=== PATIENT | male | born 1955 | race Caucasian/White ===

== ENCOUNTER 2024-04-14 08:48 | Emergency (ER) | payer OTHER, SELFPAY ==
[2024-04-14] VITALS (12 sets, daily range): BP systolic 111–142; BP diastolic 72–108; PULSE 71; O2SAT 94; BMI 36.5
--- NOTE | 2024-04-14 08:51 | ED.GENMED ---
Addendum entered and electronically signed by Albino Dunne PA-C 04/17/24 07:41:
Patient's urine culture shows pansensitive Pseudomonas. Patient was discharged on Keflex. He was ultimately disposition to [facility]. Culture report was faxed to their facility.
Original Note:
History of Present Illness
General
Chief Complaint: Fall
Time Seen by Provider: 04/14/24 08:51
History of Present Illness
History of Present Illness:
TIME OF INITIAL ENCOUNTER: 8:55 AM
HPI: Patient came in from home by ambulance. He states that his called EMS because he fell. The patient denies any symptoms, however it is noted that he is a very limited and unreliable historian. I reviewed the EMS run sheet that showed he
had a glucose of 141, room air sats of 94% and minimally hypertensive.
EXAM:
GENERAL: The patient is chronically ill-appearing, elevated BMI
HEENT: Slightly dry oral mucosa, transmitted upper airway sounds
CARDIOVASCULAR: No murmurs, normal heart rate, regular rhythm, No chest wall tenderness
PULMONARY: Mild respiratory distress with some conversational dyspnea, breath sounds are clear and equal other than the transmitted upper airway sounds
ABDOMEN: Soft with no peritoneal signs, no tenderness
NEUROLOGIC: Fair strength all extremities, no coordination deficits
PSYCHIATRIC: The patient was able to tell me that it is March but could not name the location that he is in, his insight and judgment are somewhat limited, limited recent memory
EXTREMITIES: Nontender, no edema, moves all extremities equally
SKIN: Some scattered areas of ecchymosis noted to the extremities
NUMBER AND COMPLEXITY OF PROBLEMS ADDRESSED AT THE ENCOUNTER
� Chronic conditions affecting care: Has had CVA, dementia, high blood pressure, depression, has had UTI, hypercholesterolemia, the patient denies history of COPD
� Acute Exacerbation and/or Progression of Chronic Illness: This is an acute problem
� Differential Diagnosis includes: Progressive functional decline, failure to thrive, rhabdomyolysis, GILMAR, dehydration, dysrhythmia
AMOUNT AND/OR COMPLEXITY OF DATA TO BE REVIEWED AND ANALYZED
� I performed an independent evaluation of and my interpretation is:
EKG: Sinus 82, frequent PACs, significant artifact noted likely due to patient's respiratory effort
CT:
X-rays: Chest x-ray to me is relatively unremarkable, radiologist suggested bilateral atelectasis and/or pneumonia however clinically I do not feel that the patient has
Laboratory Studies: White count and hemoglobin are normal (hemoglobin signal be higher than it was earlier in the year', cath urine shows 2+ leukocyte esterase and positive nitrite
Other:
� Review of other/old records: I reviewed the EMS run sheet from 04/28/2023. I also reviewed lab work from 05/07/2023, mild anemia and mild increase in bicarb noted at that time but otherwise CBC and chemistries relatively
unremarkable.
� Clinical information was obtained by an independent historian: EMS
� Prescriptions/Medications Considered but not given:
� Further testing considered but not performed: Considered imaging however the patient denies striking his head and he reports no pain in his extremities
RISK OF COMPLICATIONS AND/OR MORBIDITY OR MORTALITY OF PATIENT MANAGEMENT
� Social determinants of health affecting care: Lives at home
� Discussion with other providers: Hospitalist, Dr. Austin, for admission at 9:47 AM.
� Escalation of care including admission/observation vs risk of discharge considered: See below
ANY OTHER UPDATES:
9:20 AM: I reassessed patient. The patient continues to not have any complaints. Although he has some conversational dyspnea he denies any shortness of breath. He tells me now, that just before he fell, he got up suddenly and then 'that was it'.
9:40 AM: I reassessed the patient, the patient cannot tell me what his 's phone number is. There is no listed number in [employer] to obtain a better history.
10:40 AM: arrived at bedside. She is concerned about him going back home as he is a fall risk. I personally spoke to physical therapy at 10:40 AM for consult.
1:30 PM: The patient was seen by Sarah Murray who is arranged patient to be transferred to [place]. I did print a prescription for Keflex for UTI treatment.
Phy Exam
Physical Exam
Physical Exam:
See HPI
Course
Orders/Labs/Results
Orders:
Orders
04/14/24 08:53
Electrocardiogram (*1) Urgent
Reason for Study: Fatigue / Weakness
EKG- Treatment ONCE
04/14/24 09:02
CR Chest Portable - 1 View Urgent
Comment:
Reason For Exam: sob
Reason Study Needs to be Portable: Unable to Transport
04/14/24 09:03
Complete Blood Count/With Diff Urgent
Comprehensive Metabolic Panel Urgent
Creatine Phosphokinase Urgent
Influenza A+B Rapid Molecular Urgent
AVELINO Source: Nasal Swab
Specimen Description:
Date Specimen was Collected: 04/14/24
Time Specimen was Collected: 08:53
04/14/24 09:04
COVID-19 Antigen Urgent
Source: Nasal Swab
NT-proBNP Urgent
Comment: ADD ON
Urinalysis Reflex To Culture Urgent
Date Specimen was Collected: 04/14/24
Time Specimen was Collected: 08:53
Urine Microscopic Reflex Cult Urgent
Urine Culture Urgent
AVELINO Source: U
Specimen Description:
Date Specimen was Collected: 04/14/24
Time Specimen was Collected: 08:53
04/14/24 09:12
Add On- LAB Urgent
Tests Added?: bnp
0.9% Sodium Chloride 500 ml [Nss] 500 ml IV BOLUS
04/14/24 09:26
CefTRIAXone [Rocephin] 1,000 mg IV NOW STA
04/14/24 09:55
Case Management Consult ONCE
Case Management Consult: Discharge Planning
PT Consult [Pt Eval And Treat] Urgent
Activity Level: Ambulate
Abnormal Lab Results
04/14/24 04/14/24
09:03 09:04
MCHC 32.4 L g/dL
(33.0-37.0)
Absolute Neuts (auto) 6.9 H 10^3/uL
(1.4-6.5)
Absolute Lymphs (auto) 0.5 L 10^3/uL
(1.2-3.4)
Neutrophils % 88.1 H %
(42.2-75.2)
Lymphocytes % 5.9 L %
(20.5-51.1)
BUN 27 H mg/dl
(9-20)
Creatinine 1.4 H mg/dL
(0.7-1.3)
Glucose 134 H mg/dl
(70-99)
Total Bilirubin 2.2 H mg/dl
(0.2-1.3)
Alkaline Phosphatase 145 H U/L
(38-126)
Ur Occult Blood Reflex Trace A
(Negative)
Urine Nitrite (Reflex) Positive A
(Negative)
Leukocyte Esterase Rfl 2+ A
(Negative)
Urine WBC (Reflex) 30-40 A /HPF
(0-5)
Urine Bacteria (Reflex) Few A
(Negative)
04/14/24 09:03
04/14/24 09:03
Vital Signs
Initial and Last Documented VS:
Initial Vital Signs
Pulse Resp Pulse Ox
76 30 94
04/14/24 09:03 04/14/24 09:03 04/14/24 09:03
Last Documented Vital Signs
Temp Pulse Resp BP Pulse Ox
36.8 C 75 26 136/81 94
04/14/24 09:13 04/14/24 12:49 04/14/24 12:49 04/14/24 12:49 04/14/24 12:49
*Critical Care Note
Total Time (30-74mins, 75-104mins- exclusive of procedures): Not Applicable
ED Attending Note
-
Portions of this chart may have been created with voice recognition software.� Occasional wrong word or��sound alike� substitutions may have occurred due to the inherent limitations of voice recognition software.
Discharge Plan
Departure
Patient Disposition: Home (Routine Discharge)
Date of Disposition: 04/14/24
Time of Disposition: 09:48
Patient with high blood pressure during this ER visit?: Yes
Discharge Problem:
Urinary tract infection
Instructions: Urinary Tract Infection - Men
Prescriptions:
New
cephalexin 500 mg tablet
500 mg PO TID Qty: 21 0RF
No Action
atorvastatin 40 mg Tablet
40 mg PO DAILY
metoprolol succinate 25 mg Tablet Extended Release 24 Hr
25 mg PO DAILY
escitalopram oxalate 10 mg Tablet
10 mg PO DAILY
cholecalciferol (vitamin D3) 50 mcg (2,000 unit) Tablet
50 mcg PO DAILY
tamsulosin 0.4 mg Capsule
0.8 mg PO DAILY Qty: 60 0RF
ipratropium-albuterol 0.5 mg-3 mg(2.5 mg base)/3 mL solution for nebulization
3 ml inhalation R Q6HPRN PRN (Reason: wheezing)
Activity Restrictions/Additional Instructions:
Basic blood work is relatively unremarkable however the urinalysis does show signs of infection. We gave a dose of Rocephin here and I recommend that he continues antibiotic such as Keflex.
Interventions
Interventions:
*Risk Screen - Suicide Last Done: 04/14/24 09:13
*General Assessment Last Done: 04/14/24 09:13
*Neglect/Abuse Screening Last Done: 04/14/24 09:13
ED- Fall Risk Assessment Last Done: 04/14/24 09:13
*ED COVID-19 Vaccine History Last Done: 04/14/24 09:13
ED-Musculoskeletal Assessment Last Done: 04/14/24 09:13
ED- Neurological Assessment Last Done: 04/14/24 09:13
ED-Skin Assessment Last Done: 04/14/24 09:13
Discharge Date and Time
Print Language: STATELESS
[2024-04-14 09:19] LABS: % Basophils 0.3 % (0-2); % Immature Granulocytes 0.4 % (0-0.5); % Lymphocytes 5.9 % (20.5-51.1); % Monocytes 5.3 % (1.7-9.3); % Neutrophils 88.1 % (42.2-75.2); Absolute Lymphocytes 0.5 10^3/uL (1.2-3.4); Absolute Monocytes 0.4 10^3/uL (0.1-0.6); Absolute Neutrophils 6.9 10^3/uL (1.4-6.5); Hematocrit 48.5 % (39.0-52.0); Hemoglobin 15.7 g/dL (13.0-18.0); Mean Corp Hgb Conc. 32.4 g/dL (33.0-37.0); Mean Corpuscular Hgb 30.2 pg (27.0-31.0); Mean Corpuscular Volume 93.3 fL (80.0-94.0); Mean Platelet Volume 8.3 fL (7.4-10.4); Nucleated Red Blood Cells % 0 % (-); Platelet Count 166 10^3/uL (130-400); White Blood Cell Count 7.8 10^3/uL (4.8-10.8)
[2024-04-14 09:21] LABS: Urine Albumin Trace (Neg - Trace); Urine Bilirubin Negative (Negative); Urine Character Very Cloudy (Clear); Urine Color Yellow; Urine Glucose Negative (Negative); Urine Ketone Negative (Negative); Urine Leukocyte 2+ (Negative); Urine Nitrite Positive (Negative); Urine Occult Blood Trace (Negative); Urine Specific Gravity 1.015 (<1.030); Urine Urobilinogen Negative (Neg - 1+)
[2024-04-14] MEDS: NSS 500 IV (09:24)
[2024-04-14 09:31] LABS: Urine Bacteria Few (Negative); Urine Red Blood Cell 0-2 /HPF (0-2); Urine Squamous Cell 0-2 /LPF (Few); Urine White Cell 30-40 /HPF (0-5)
[2024-04-14 09:33] LABS: ALT (SGPT) 14 U/L (0-50); AST (SGOT) 21 U/L (17-59); Albumin 3.8 g/dl (3.5-5.0); Alkaline Phosphatase 145 U/L (38-126); Blood Urea Nitrogen 27 mg/dl (9-20); Carbon Dioxide 25 mmol/L (22-30); Chloride 103 mmol/L (98-107); Creatine Phosphokinase 86 U/L (55-170); Estimated Creatinine Clearance 72 ml/min; Glucose 134 mg/dl (70-99); Potassium 4.3 mmol/L (3.5-5.1); Sodium 137 mmol/L (135-145); Total Bilirubin 2.2 mg/dl (0.2-1.3); Total Protein 6.7 g/dl (6.3-8.2); eGFR 54.75
[2024-04-14 09:38] LABS: COVID-19 Antigen Negative (Negative)
[2024-04-14] MEDS: ROCEPHIN 1000 MG IV (09:41)
--- NOTE | 2024-04-14 10:17 | CM ---
CM was consulted for discharge planning. CM left message for Tianna at [facility] regarding emergency contact. Patient appears to have been a patient there at one point.
--- NOTE | 2024-04-14 10:31 | CM ---
Addendum entered by Sarah Murray RN 04/14/24 11:56:
CM updated referral with PT notes. Awaiting review by Shahnaz at [facility].
Addendum entered by Sarah Murray RN 04/14/24 11:36:
Patient would be agreeable to [facility] once patient has been accepted.
Addendum entered by Sarah Murray RN 04/14/24 11:16:
Patient's does not want [facility] as they had a poor experience there.
CM sent referrals to [facility], [facility], and [facility].
CM awaiting admission feedback.
Addendum entered by Sarah Murray RN 04/14/24 10:50:
CM sent referral via [facility] to [facility] for review.
Original Note:
in room with patient.
--- NOTE | 2024-04-14 10:59 | EDRN ---
physical therapy currently at the pts bedside
[2024-04-14 11:14] LABS: NT-proBNP 1800 pg/ml
--- NOTE | 2024-04-14 12:05 | CM ---
Addendum entered by Sarah Murray RN 04/14/24 13:17:
IBC Authorization
[facility]
5 days
NRD 04/18
Auth Number [id number]
[facility]ute [facility] Authorization
[facility]
[id number]
Original Note:
[facility] is able to accept. CM to call IBC for authorization,
--- NOTE | 2024-04-14 12:49 | EDRN ---
awaiting for the hospitalist to come to the pts bedside to admit the pt
--- NOTE | 2024-04-14 13:21 | CM ---
BRANDY
REPORT
[phone]
== END 2024-04-14 17:20 | disposition home or self-care (01) ==
LOC: EMR 08:48
PROVIDERS: EMERGENCY PHYSICIAN Emergency Medicine; FAMILY PHYSICIAN Internal Medicine
DX: N39.0 Urinary tract infection, site not specified (principal); F03.90 Unspecified dementia, unspecified severity, without behavioral disturbance, psychotic disturbance, mood disturbance, and anxiety; Z86.73 Personal history of transient ischemic attack (TIA), and cerebral infarction without residual deficits; I10 Essential (primary) hypertension; E78.00 Pure hypercholesterolemia, unspecified
CPT/HCPCS: 99285; 96374; 96361; 71045; 80053; 81003; 81015; 82550; 83880; 85025; 87077; 87086; 87186; 87502; 87811; 93005

== ENCOUNTER → 2024-04-17 11:13 | Outpatient (REF) | payer OTHER, MEDICARE, SELFPAY ==
[2024-04-17 11:43] LABS: Hematocrit 40.9 % (39.0-52.0); Hemoglobin 13.6 g/dL (13.0-18.0); Mean Corp Hgb Conc. 33.3 g/dL (33.0-37.0); Mean Corpuscular Hgb 30.2 pg (27.0-31.0); Mean Corpuscular Volume 90.9 fL (80.0-94.0); Mean Platelet Volume 9.3 fL (7.4-10.4); Platelet Count 204 10^3/uL (130-400); Red Cell Dist. Width 13.1 % (11.5-14.5); White Blood Cell Count 11.5 10^3/uL (4.8-10.8)
[2024-04-17 11:51] LABS: ALT (SGPT) 18 U/L (0-50); AST (SGOT) 30 U/L (17-59); Albumin 3.5 g/dl (3.5-5.0); Alkaline Phosphatase 139 U/L (38-126); Blood Urea Nitrogen 27 mg/dl (9-20); Calcium 9.1 mg/dl (8.4-10.2); Carbon Dioxide 28 mmol/L (22-30); Chloride 102 mmol/L (98-107); Glucose 132 mg/dl (70-99); Magnesium 2.1 mg/dl (1.6-2.3); Potassium 4.7 mmol/L (3.5-5.1); Sodium 137 mmol/L (135-145); Total Bilirubin 0.9 mg/dl (0.2-1.3); Total Protein 6.2 g/dl (6.3-8.2); eGFR > 60.00
== END ==
LOC: OLABWHC 11:13
PROVIDERS: ATTENDING PHYSICIAN Family Medicine
DX: E78.5 Hyperlipidemia, unspecified (principal); I10 Essential (primary) hypertension
CPT/HCPCS: 36415; 80053; 83735; 85027

== ENCOUNTER 2024-12-06 02:21 | Inpatient (IN) | payer OTHER, MEDICARE, SELFPAY ==
[2024-12-05 23:35] VITALS: BP 179/111
[2024-12-05 23:41] VITALS: BMI 35.7
[2024-12-05 23:42] VITALS: BP 179/111
[2024-12-05 23:58] LABS: Hematocrit 48.0 % (39.0-52.0); Hemoglobin 16.0 g/dL (13.0-18.0); Mean Corp Hgb Conc. 33.3 g/dL (33.0-37.0); Mean Corpuscular Volume 87.0 fL (80.0-94.0); Nucleated Red Blood Cells % 0 % (-); Platelet Count 185 10^3/uL (130-400); Red Cell Dist. Width 13.2 % (11.5-14.5)
[2024-12-06] VITALS (10 sets, daily range): BP systolic 103–155; BP diastolic 65–96; PULSE 64; O2SAT 97; BMI 33.3
[2024-12-06 00:14] LABS: COVID-19 Antigen Negative (Negative)
[2024-12-06 00:22] LABS: ALT (SGPT) 15 U/L (0-50); AST (SGOT) 24 U/L (17-59); Albumin 4.4 g/dl (3.5-5.0); Alkaline Phosphatase 129 U/L (38-126); Blood Urea Nitrogen 21 mg/dl (9-20); Calcium 9.3 mg/dl (8.4-10.2); Carbon Dioxide 23 mmol/L (22-30); Chloride 101 mmol/L (98-107); Estimated Creatinine Clearance 71 ml/min; Glucose 154 mg/dl (70-99); Potassium 4.7 mmol/L (3.5-5.1); Sodium 134 mmol/L (135-145); Total Protein 7.4 g/dl (6.3-8.2); eGFR 54.75
[2024-12-06 00:31] LABS: Urine Character Clear (Clear)
[2024-12-06] MEDS: OFIRMEV 100 IV (00:58)
[2024-12-06] MEDS: NSS 1000 IV ×2 (00:59→04:31)
--- NOTE | 2024-12-06 01:07 | ED.GENMED ---
History of Present Illness
General
Chief Complaint: Fever
Source: spouse
Exam Limitations: none
Time Seen by Provider: 12/05/24 23:39
Nursing documentation reviewed up to this point in time: agreed with
History of Present Illness
History of Present Illness:
states patient has had an increase in his cough over the past few days SHe has been treating with mucinex and nebulizers without imrpovement. Tonight she felt that he seemed weaker, more confused. Brought to ED via EMS for eval. Pateints
mother in law recently dx with COVID infection. On arrival to ED temp 102.4
Past History
Past History
ED Past Medical History: CVA, HTN and Other
Social History
Tobacco: Non-smoker
Alcohol: None
Personal:
Living: with family
Employment: Disabled
Review of Systems
Review of Systems
Allergies reviewed?: Yes
All Other Systems: ROS reviewed and negative except as documented in HPI and ROS
Constitutional: Reports fever
EENT: Reports no symptoms
Respiratory: Reports cough
Cardiac: Reports no symptoms
ABD/GI: Reports no symptoms
: Reports no symptoms
Musculoskeletal: Reports no symptoms
Skin: Reports no symptoms
Neurological: Reports weakness
Psychiatric: Reports no symptoms
Phy Exam
General Physical Exam
General Presentation: mild distress
General age: appears older than age
General Skin: warm and dry
General Habitus: debilitated, elderly and obese
General Mental: confused (dementia by history. feels he is more confused than normal)
General Hydration: dry mucous membranes
Cardiovascular Exam
Cardiovascular Exam: regular rate/rhythm and no edema
Pulmonary Exam
Pulmonary Exam: decreased breath sounds
Cough: coarse cough
Gastrointestinal Exam
Gastrointestinal Exam: normal bowel sounds, non tender, soft, no organomegaly and non distended
Musculoskeletal Exam
Musculoskeletal Exam: neuro vasc intact
Skin Exam
Skin Exam: normal color, warm/dry and no rash
Psychiatric Exam
Psychiatric Exam: normal mood/affect
Course
Orders/Labs/Results
Orders:
Orders
12/05/24 23:37
Electrocardiogram (*1) Urgent
Reason for Study: Other
Other Reason for Exam: Possible Sepsis
Cardiac Monitoring- Treatment ONCE
EKG- Treatment ONCE
IV Insert/Care/Rem.- Treatment PRN
Straight cath- Treatment ONCE
O2 Therapy [RESP] Urgent
Titrate/Wean O2 to maintain O2 sat greater than (%): 93
Special Instructions: TO MAINTAIN CONTINUOUS O2 SATS > OR = 93%
Pulse Ox/cont/shift [RESP] Urgent
Quantity: 1
Special Instructions: CONTINUOUS
12/05/24 23:40
COVID-19 Antigen Urgent
Source: Nasal Swab
Complete Blood Count/With Diff Urgent
Comprehensive Metabolic Panel Urgent
Lactic Acid Q4H
Comment: ON ICE, CANCEL 2ND ORDER IF FIRST LACTIC ACID LEVEL <2
Urinalysis Reflex To Culture Urgent
Date Specimen was Collected: 12/05/24
Time Specimen was Collected: 23:37
Urine Microscopic Reflex Cult Urgent
Blood Culture Q20M
AVELINO Source: Blood/Venous
Specimen Description:
Comment: Urgent from separate sites. If patient screens positive for possible sepsis
INF RAPID [Influenza A+B Rapid Molecular] Urgent
AVELINO Source: Nasal Swab
Specimen Description:
Urine Culture Urgent
AVELINO Source: U
Specimen Description:
Date Specimen was Collected: 12/05/24
Time Specimen was Collected: 23:37
12/06/24 00:00
CR Chest - 2 Views Urgent
Reason For Exam: suspected infection
12/06/24 00:05
Blood Culture Q20M
AVELINO Source: Blood/Venous
Specimen Description:
Comment: Urgent from separate sites. If patient screens positive for possible sepsis
12/06/24 00:19
Acetaminophen 1000MG/100Ml [Ofirmev] 1,000 mg in 100 ml IV ONCE
Acetaminophen IV Indication:: No [place] & No Enteral Access
12/06/24 00:30
0.9% Sodium Chloride 1000 ml [Nss] 1,000 ml IV 2,000 mls/hr
12/06/24 01:04
Piperacillin/Tazo 4.5 Gram [Zosyn] 4.5 gram in 100 ml IV NOW
12/06/24 03:45
Lactic Acid Q4H
Comment: ON ICE, CANCEL 2ND ORDER IF FIRST LACTIC ACID LEVEL <2
Abnormal Lab Results
12/05/24
23:40
Abs Immat Gran (auto) 0.1 H 10^3/uL
(0-0.05)
Absolute Neuts (auto) 8.8 H 10^3/uL
(1.4-6.5)
Absolute Lymphs (auto) 0.4 L 10^3/uL
(1.2-3.4)
Neutrophils % 91.1 H %
(42.2-75.2)
Lymphocytes % 4.5 L %
(20.5-51.1)
Sodium 134 L mmol/L
(135-145)
BUN 21 H mg/dl
(9-20)
Creatinine 1.4 H mg/dL
(0.7-1.3)
Glucose 154 H mg/dl
(70-99)
Lactic Acid 2.8 H mmol/L
(0.7-2.0)
Total Bilirubin 2.1 H mg/dl
(0.2-1.3)
Alkaline Phosphatase 129 H U/L
(38-126)
Ur Occult Blood Reflex 3+ A
(Negative)
Leukocyte Esterase Rfl 3+ A
(Negative)
Urine RBC 3-6 A /HPF
(0-2)
Urine WBC (Reflex) >100 A /HPF
(0-5)
Urine Bacteria (Reflex) Moderate A
(Negative)
Urine Albumin (Reflex) 2+ A
(Neg - Trace)
12/05/24 23:40
12/05/24 23:40
Vital Signs
Initial and Last Documented VS:
Initial Vital Signs
Resp BP
18 179/111
12/05/24 23:35 12/05/24 23:35
Last Documented Vital Signs
Temp Pulse Resp BP Pulse Ox
102.4 F H 108 35 150/96 99
12/05/24 23:42 12/06/24 00:15 12/06/24 00:15 12/06/24 00:00 12/06/24 01:14
*Pulse Oximetry
SaO2: 99
Nasal Cannula flow liters per minute: 6
Patient hypoxic: no
*Critical Care Note
Total Time (30-74mins, 75-104mins- exclusive of procedures): Not Applicable
Update Note
Update Note:
Patient to ED for eval of increasing confusion, weakness. Temp on arrival 102.4. Given dose of ofirmev. Labs reviewed WBC normal, lactic 2.8. Given 2L NSS. CXR concerning for RLL pneumonia. UA >100 WBC, confirming UTI. WIll place on Zosyn,
initiated in ED Will admit to hospitalist service. Discussed finding wtih and she is agreeable to plan.
ED Attending Note
-
Portions of this chart may have been created with voice recognition software.� Occasional wrong word or��sound alike� substitutions may have occurred due to the inherent limitations of voice recognition software.
Discharge Plan
Departure
Patient Disposition: Admit
Date of Disposition: 12/06/24
Time of Disposition: 01:14
Presentation/result/management discussed w/ accepting MD/DO: Hospitalist
Patient with high blood pressure during this ER visit?: No
Condition: Fair
Covid-19: Not Applicable
Discharge Problem:
Pneumonia, UTI (urinary tract infection)
Prescriptions:
No Action
atorvastatin 40 mg Tablet
40 mg PO DAILY
metoprolol succinate 25 mg Tablet Extended Release 24 Hr
25 mg PO DAILY
escitalopram oxalate 10 mg Tablet
10 mg PO DAILY
cholecalciferol (vitamin D3) 50 mcg (2,000 unit) Tablet
50 mcg PO DAILY
tamsulosin 0.4 mg Capsule
0.8 mg PO DAILY Qty: 60 0RF
albuterol sulfate 1.25 mg/3 mL Solution For Nebulization
1.25 mg INHALATION Q6H
Referrals:
Obinna Christine MD [Family Provider, Internal Medicine]
Interventions
Interventions:
*General Assessment Last Done: 12/05/24 23:47
*Neglect/Abuse Screening Last Done: 12/05/24 23:51
*ED- Fall Risk Assessment Last Done: 12/05/24 23:47
*ED COVID-19 Vaccine History Last Done: 12/05/24 23:46
ED- Neurological Assessment Last Done: 12/05/24 23:51
ED-Skin Assessment Last Done: 12/05/24 23:56
Discharge Date and Time
Print Language: BELARUSIAN
[2024-12-06 01:08] LABS: Urine Squamous Cell None seen /LPF (Few)
[2024-12-06 01:09] LABS: Urine White Cell >100 /HPF (0-5)
--- NOTE | 2024-12-06 01:35 | HPS.HSE ---
Family Physician
-
Family Physician: Obinna Christine
Chief Complaint
-
No fever
History of Present Illness
This is a 68-year-old male with past medical history significant for hypertension, hyperlipidemia, CVA with residual aphasia and neurogenic bladder, MONIKA, episode of paroxysmal atrial fibrillation presenting to the emergency department with
increasing cough over the last few days and now with associated weakness and confusion.
Patient started having a cough about 5 days ago. Spouse was treating it with inhalers symptomatically. He appeared to be doing well up until today when he was found to be less a lot more confused than usual. He usually has an appetite and he was
not really eating. He was confused about how to walk and what to do. Spouse felt this was not normal for him and he said to bring him to the emergency department. She did not measure any fevers. She did not see any productive cough. Patient
unable to complain about urinary symptoms. There was no nausea or vomiting.
She reports that about 2 weeks ago he was diagnosed again with a urinary tract infection. He did finish a course of oral tolerated generation cephalosporin x 3 days with improvement in his mental status afterwards. There is a sick contact with
COVID infection recently. No other sick contacts. No other hospitalizations recently.
In the emergency department patient was febrile to 102.4, he was satting 99% on room air. Blood pressure was 150/90 with a pulse rate of 108. Chest x-ray shows perihilar infiltrate and possibly bibasilar atelectasis or pneumonia. ECG sinus
tachycardia at 108 without any new changes. COVID test was negative. Influenza test was negative. CBC is unremarkable. Electrolytes BUN and creatinine were in the normal range. UA was positive for leukocyte esterase WBCs and bacteria with no
evidence of contamination.
Medical History
Past Medical History
Past Medical History: Reports Other
Additional Past Medical History:
CVA X 3 with Residual Right-Sided Weakness and Expressive/Receptive Aphasia
Essential Hypertension
Hyperlipidemia
Depression
BPH
Past Surgical History: Reports Other
Additional Past Surgical History:
Lung Surgery for Pneumonia
Social History
Tobacco: Former Smoker
Alcohol: Former
Drug: None
Personal:
Living: With Family
Family History
Family History: Not pertinent
Allergies / Home Medications
Allergies reflects when Allergies were last updated in [facility].
Home Medications with original date entered in [facility]
Allergy/Medication List:
Allergies
Allergy/AdvReac Type Severity Reaction Status Date / Time
No Known Allergies Allergy Unverified 04/18/23 07:57
Home Medications
atorvastatin 40 mg tablet 40 mg PO DAILY High Cholesterol 04/18/23
cholecalciferol (vitamin D3) 50 mcg (2,000 unit) tablet 50 mcg PO DAILY Supplement 04/18/23
escitalopram oxalate 10 mg tablet 10 mg PO DAILY Depression 04/18/23
lisinopril 20 mg tablet 20 mg PO DAILY Blood Pressure 04/18/23
metoprolol succinate 25 mg tablet,extended release 24 hr 25 mg PO DAILY Blood Pressure 04/18/23
beclomethasone dipropionate 40 mcg/actuation HFA breath activated aerosol (Qvar RediHaler) 1 inh inhalation BID copd #10.6 grams 04/26/23
ciprofloxacin HCl 500 mg tablet 500 mg PO BID Infection #10 tabs 04/26/23
ipratropium 0.5 mg-albuterol 3 mg (2.5 mg base)/3 mL nebulization soln 3 ml inhalation Q6H PRN wheezing #90 mL 04/26/23
tamsulosin 0.4 mg capsule 0.8 mg PO DAILY Urinary issue #60 caps 04/26/23
vancomycin 125 mg capsule 125 mg PO QID Gastrointestinal issue #28 caps 04/26/23
Review of Systems
-
History Source: Patient and Family
Constitutional: Reports No Symptoms
Respiratory: Reports No Symptoms, Cough and Trouble Breathing
Cardiac: Reports No Symptoms
Abdomen/GI: Reports No Symptoms
: Reports No Symptoms
Musculoskeletal: Reports No Symptoms
Skin: Reports No Symptoms
Neurological: Reports Weakness and Other (Confusion)
Endocrine: Reports No Symptoms
Physical Exam
Vital Signs
Vital Signs
Temp Pulse Resp BP Pulse Ox
102.4 F H 108 35 150/96 99
12/05/24 23:42 12/06/24 00:15 12/06/24 00:15 12/06/24 00:00 12/06/24 01:14
Physical Exam
General: Comfortable, Conversant and Morbidly Obese
HEENT: Anicteric and Moist mucous membranes
Respiratory: Clear, Non Labored Respirations and Other (Shallow respirations)
Cardiac: S1/S2 and Regular Rhythm; No Murmur
GI: Soft, Non Tender and Non Distended
Genito-urinary: [place]
Musculoskeletal: No Clubbing, No Cyanosis and No Edema
Skin: Warm and Dry
Neuro: Awake, Alert, Oriented (Oriented x 1) and Nonfocal/grossly intact
Psych: Calm
Laboratory Results
-
12/05/24 23:40
12/05/24 23:40
Laboratory Results
Lactic Acid 2.8 mmol/L (0.7-2.0) H 12/05/24 23:40
Total Bilirubin 2.1 mg/dl (0.2-1.3) H 12/05/24 23:40
AST 24 U/L (17-59) 12/05/24 23:40
ALT 15 U/L (0-50) 12/05/24 23:40
Alkaline Phosphatase 129 U/L (38-126) H 12/05/24 23:40
Data Reviewed
-
Diagnostic Radiology: Image Personally Visualized and interpreted
Medical Tests (Nuc Med, Echo, EKG etc): Image Personally Visualized and interpreted
Lab Data: Labs Reviewed by me
Old Records: Reviewed
Impression/Plan
-
IMPRESSION:
68-year-old with history of CVA with residual aphasia and neurogenic bladder complicated by recurrent urinary tract infections, morbid obesity, MONIKA not on CPAP presenting to the emergency department with weakness lethargy and altered mental status
where he was found to be febrile to 102.4. Evaluation in the ED shows that he has bibasilar atelectasis/pneumonia and possibly a perihilar infiltrate as well. Urinalysis is positive. He is on 1 L's of oxygen and he is hemodynamically stable. He
has been giving sepsis fluids in the ED and started on spectrum antibiotics.
PLAN:
Pneumonia -bibasilar atelectasis/pneumonia. Perihilar infiltrates. Patient is not hypoxic and has remained hemodynamically stable. Vitals meets sepsis criteria with fever tachycardia and lactic acidosis. Recent UTI treated with third generation
cephalosporin and history of Pseudomonas
- Admit to med/surg
- Blood cultures sent, no cough or sputum
- Check Legionella and pneumococcal urinary antigens
- Will check MRSA swab
- Will add vancomycin and continue Zosyn for now pending swab
- Incentive spirometry
- Nebs and supplemental oxygen
- Patient may need BiPAP due to shallow breathing support currently does not appear to be retaining, will check venous blood gas
UTI -recurrent UTI with history of Pseudomonas and status post recent infection
- Urine culture sent
- IV antibiotics with Zosyn for now
- Status post 2 L normal saline, continue with maintenance fluids
- Continue tamsulosin
CVA-chronic aphasia with residual right-sided weakness
- Continue statin
Hypertension
-Continue metoprolol succinate
DVT prophylaxis�Lovenox subcu
CODE STATUS�DNR, DO NOT INTUBATE
[2024-12-06] MEDS: ZOSYN 100 IV (02:00)
[2024-12-06] MEDS: VANCOCIN 540 MG IV (02:37)
[2024-12-06] MEDS: TYLENOL 650 MG PO (04:32)
[2024-12-06] MEDS: NSS IV (04:32)
[2024-12-06 06:31] LABS: B.E. -2.0 mmol/L; HCO3 23.7 mmol/L (21-28); O2 Saturation % 99.3 % (94-98); O2 Therapy 28; PCO2 43 mmHg (35-48); PO2 93 mmHg (83-108)
[2024-12-06] MEDS: DUONEB 3 ML INH ×4 (07:30→19:47)
[2024-12-06 07:59] LABS: Hematocrit 39.7 % (39.0-52.0); Hemoglobin 13.2 g/dL (13.0-18.0); Mean Corp Hgb Conc. 33.2 g/dL (33.0-37.0); Mean Corpuscular Volume 88.4 fL (80.0-94.0); Platelet Count 179 10^3/uL (130-400); Red Cell Dist. Width 13.3 % (11.5-14.5)
[2024-12-06] MEDS: TOPROL XL 25 MG PO (08:22)
[2024-12-06] MEDS: ZOSYN 50 IV (08:22)
[2024-12-06] MEDS: LIPITOR 40 MG PO (08:22)
[2024-12-06] MEDS: VITAMIN D3 (cholecalciferol) 50 MCG PO (08:24)
[2024-12-06] MEDS: LEXAPRO 10 MG PO (08:24)
[2024-12-06] MEDS: FLOMAX 0.8 MG PO (08:24)
[2024-12-06 08:48] LABS: Blood Urea Nitrogen 20 mg/dl (9-20); Calcium 7.8 mg/dl (8.4-10.2); Carbon Dioxide 22 mmol/L (22-30); Chloride 107 mmol/L (98-107); Estimated Creatinine Clearance 69 ml/min; Glucose 130 mg/dl (70-99); Potassium 4.4 mmol/L (3.5-5.1); Sodium 136 mmol/L (135-145); eGFR 54.75
--- NOTE | 2024-12-06 08:58 | PHA.VAN.IN ---
Assessment
- Assessment
Renal Function: SCR Appears Elevated from baseline
Renal Function may be Overestimated due to: Obesity. BMI = 33.3
Maximum Temperature: 102.4
Minimum Temperature: 99.1
Concomitant Antimicrobials: Piperacillin-tazobactam
AUC Dosing Plan
- Dosing Variables
Dosing Weight (kg): 117.7
Dosing CrCl (ml/min): 69
Vd coefficient (L/kg): 0.7
- Empiric Dosing
Initial / Loading Dose: Vanc 2gm 12/06 at 0237
Maintenance Regimen: Vanc 1gm IV q12H. Start at 1800.
Estimated AUC (mcg*h/mL): 406
Estimated Peak (mcg*h/mL): 23.2
Estimated Trough (mcg/ml): 11.8
Estimated Half Life (H): 11.2
- Monitoring
No levels ordered at this time: Consider levels after 12/07 1800 dose.
Pharmacokinetics Vancomycin I
- -
Patient Age: 68
Patient Sex: Male
Vancomycin Day #: 1
Indication: Pulmonary/Respiratory
Requesting Provider: Elías
Height / Weight:
Height 6 ft 2 in
Actual Weight 117.736 kg
IBW in k.2
Adjusted BW in k
Pertinent Past Medical History: BMI = 33.3
- Vital Signs / Lab Results
Temp Pulse Resp BP Pulse Ox
97.9 F 59 18 114/65 97
12/06/24 07:10 12/06/24 08:22 12/06/24 07:34 12/06/24 08:22 12/06/24 07:34
Lab Results - Hematology
12/05/24 12/06/24
23:40 06:57
WBC 9.6 11.2 H
Lab Results - Chemistry
12/05/24 12/06/24
23:40 06:57
BUN 21 H 20
Creatinine 1.4 H 1.4 H
Estimated Creat Clear 71 69
Albumin 4.4
12/05/24 12/06/24
23:40 03:42
Lactic Acid 2.8 H 1.7
Lab Results - Urine
12/05/24
23:40
Urine Nitrite (Reflex) Negative
Leukocyte Esterase Rfl 3+ A
Urine WBC (Reflex) >100 A
Ur Squamous Epith Cells None seen
Urine Bacteria (Reflex) Moderate A
Microbiology Results
12/05/24 23:40 Influenza Types A & B (BINU) - Final
Nasal Swab Negative for Influenza A & B, NAAT
Negative results must be combined with clinical observations
and patient history.
Nucleic Acid Amplification test (NAAT)performed on the
[employer] NOW platform.
--- NOTE | 2024-12-06 10:13 | W.PN.HOSP.TC ---
Today's Communication/Plan
-
Follow-up cultures
Change antibiotics
Assessment / Plan
Assessment / Plan
Gen-AAOx3, NAD
HEENT-NC, AT, anicteric, clear oral mm
Neck-supple
CV-reg, no M, +S1/S2
Lungs-clear B/L
Abd-soft, NT, ND
Ext-no edema
Musculoskeletal-no cyanosis, clubbing
Skin-warm and dry
Neuro-grossly non-focal
Psych-calm, cooperative
Sepsis -differential diagnosis of pneumonia versus UTI. I do not believe that he would have both. He denies any urinary symptoms. He did have a cough prior to admission and I suspect pneumonia is the correct diagnosis.
Admission chest x-ray with bibasilar airspace consolidation representing either pneumonia versus atelectasis.
Consolidate antibiotics for community-acquired pneumonia, ceftriaxone and doxycycline.
Follow-up on cultures.
Urinalysis shows pyuria which could represent asymptomatic bacteriuria especially given his history of neurogenic bladder. Therefore, urinalysis in this patient may not be a reliable marker of infection especially if he has no symptoms of a UTI.
Lactic acidosis present on admission, resolved.
Hyponatremia -present on admission, resolved.
History of stroke x 3 -with residual right hemiparesis, global aphasia.
Essential hypertension -presentation with hypertensive urgency, resolved.
Hyperlipidemia -atorvastatin.
BPH
Depression
Possible vascular dementia
Obesity due to excess calories
DNR
Anticipated Discharge: 24 - 48 hours
Subjective/Interval History
-
Date of Service: December 06, 2024
Patient seen and examined. No complaints.
Objective Data
-
Labs:
Laboratory Results
12/05/24 12/06/24 12/06/24
23:40 06:08 06:57
WBC 9.6 11.2 H
Hgb 16.0 13.2
Hct 48.0 39.7
Plt Count 185 179
HCO3 23.7
Sodium 134 L 136
Potassium 4.7 4.4
Chloride 101 107
Carbon Dioxide 23 22
BUN 21 H 20
Creatinine 1.4 H 1.4 H
Glucose 154 H 130 H
Calcium 9.3 7.8 L D
Total Bilirubin 2.1 H
AST 24
ALT 15
Alkaline Phosphatase 129 H
Vital Signs:
Vital Signs
Temp Pulse Resp BP Pulse Ox
97.9 F 59 18 114/65 97
12/06/24 07:10 12/06/24 08:22 12/06/24 07:34 12/06/24 08:22 12/06/24 07:34
Review of Systems
-
History Source: Patient
All other systems: Reviewed and negative
--- NOTE | 2024-12-06 10:24 | CM ---
Patient seen beside, initial assessment completed. Patient is a 68-year-old male with past medical history significant for hypertension, hyperlipidemia, CVA with residual aphasia and neurogenic bladder, MONIKA, episode of paroxysmal atrial fibrillation
presenting to the emergency department with increasing cough.
Patient resides w/ spouse and son in a single story home, 2 steps to enter from the outside. Patient is independent w/ ambulation, no device required. Independent w/ ADLs. No DME reported. Denies SNF/HC hx.
Address, point of contact and insurance verified
PCP: Obinna Christine
Pharmacy: [facility]
PT eval ordered
Plan: CM will cont to follow for d/c planning
[2024-12-06] MEDS: VIBRAMYCIN 100 MG PO ×2 (11:10→20:44)
[2024-12-06] MEDS: STERILE WATER FOR INJECTION 10 ML IV (11:41)
[2024-12-06] MEDS: ROCEPHIN 1000 MG IV (11:41)
[2024-12-06] MEDS: LOVENOX 40 MG SC (17:23)
[2024-12-07] VITALS (8 sets, daily range): BP systolic 138–168; BP diastolic 81–103; PULSE 91; O2SAT 93
[2024-12-07] MEDS: ZOFRAN 4 MG IV ×2 (02:21→08:43)
[2024-12-07] MEDS: DUONEB 3 ML INH ×3 (07:39→19:22)
[2024-12-07 07:58] LABS: Hematocrit 43.6 % (39.0-52.0); Hemoglobin 14.2 g/dL (13.0-18.0); Mean Corp Hgb Conc. 32.6 g/dL (33.0-37.0); Mean Corpuscular Volume 88.3 fL (80.0-94.0); Nucleated Red Blood Cells % 0 % (-); Platelet Count 170 10^3/uL (130-400); Red Cell Dist. Width 13.9 % (11.5-14.5)
[2024-12-07 08:24] LABS: Blood Urea Nitrogen 19 mg/dl (9-20); Calcium 8.9 mg/dl (8.4-10.2); Carbon Dioxide 21 mmol/L (22-30); Chloride 106 mmol/L (98-107); Estimated Creatinine Clearance 74 ml/min; Glucose 144 mg/dl (70-99); Potassium 3.8 mmol/L (3.5-5.1); Sodium 134 mmol/L (135-145); eGFR 59.84
[2024-12-07] MEDS: FLOMAX 0.8 MG PO (09:32)
[2024-12-07] MEDS: VIBRAMYCIN 100 MG PO ×2 (09:32→20:48)
[2024-12-07] MEDS: TOPROL XL 25 MG PO (09:34)
[2024-12-07] MEDS: LEXAPRO 10 MG PO (09:36)
[2024-12-07] MEDS: VITAMIN D3 (cholecalciferol) 50 MCG PO (09:36)
[2024-12-07] MEDS: LIPITOR 40 MG PO (09:36)
--- NOTE | 2024-12-07 10:18 | W.PN.HOSP.TC ---
Today's Communication/Plan
-
Obstruction series
IV fluids
N.p.o.
Assessment / Plan
Assessment / Plan
Gen-AAOx3, NAD
HEENT-NC, AT, anicteric, clear oral mm
Neck-supple
CV-reg, no M, +S1/S2
Lungs-mild end expiratory wheezing bilaterally
Abd-soft, NT, distended
Ext-no edema
Musculoskeletal-no cyanosis, clubbing
Skin-warm and dry
Neuro-grossly non-focal
Psych-calm, cooperative
Sepsis -differential diagnosis of pneumonia versus UTI. I do not believe that he would have both. He denies any urinary symptoms. He did have a cough prior to admission and I suspect pneumonia is the correct diagnosis.
Admission chest x-ray with bibasilar airspace consolidation representing either pneumonia versus atelectasis.
Consolidate antibiotics for community-acquired pneumonia, ceftriaxone and doxycycline.
Blood cultures negative. COVID-negative, influenza negative.
Urinalysis shows pyuria which could represent asymptomatic bacteriuria especially given his history of neurogenic bladder. Therefore, urinalysis in this patient may not be a reliable marker of infection especially if he has no symptoms of a UTI.
Lactic acidosis present on admission, resolved.
Continue inhalers, add a dose of dexamethasone for wheezing.
Nausea/vomiting -unclear etiology. Check obstruction series. Patient states he does not feel bloated although abdomen does feel distended.
Does not have an appetite, did not eat today.
Hyponatremia -stable at 134.
History of stroke x 3 -with residual right hemiparesis, global aphasia.
Essential hypertension -presentation with hypertensive urgency, resolved.
Hyperlipidemia -atorvastatin.
BPH
Depression
Possible vascular dementia
Obesity due to excess calories
DNR
Anticipated Discharge: > 48 hours
Subjective/Interval History
-
Date of Service: December 07, 2024
Patient seen and examined. Complaining of cough, nausea and vomiting. Denies abdominal discomfort.
Objective Data
-
Labs:
Laboratory Results
12/07/24
07:27
WBC 8.5
Hgb 14.2
Hct 43.6
Plt Count 170
Sodium 134 L
Potassium 3.8
Chloride 106
Carbon Dioxide 21 L
BUN 19
Creatinine 1.3
Glucose 144 H
Calcium 8.9
Vital Signs:
Vital Signs
Temp Pulse Resp BP Pulse Ox
97.7 F 93 16 144/95 92
12/07/24 07:03 12/07/24 09:34 12/07/24 07:41 12/07/24 09:34 12/07/24 07:41
I&O
12/06/24 12/07/24 12/08/24
06:59 06:59 06:59
Intake Total 720 / 720
Balance 720 / 720
Review of Systems
-
History Source: Patient
All other systems: Reviewed and negative
[2024-12-07] MEDS: DECADRON 8 MG IV (10:44)
[2024-12-07] MEDS: 0.45%NACL 1000 IV (10:44)
[2024-12-07] MEDS: DUONEB INH (11:12)
[2024-12-07] MEDS: STERILE WATER FOR INJECTION 10 ML IV (12:19)
[2024-12-07] MEDS: ROCEPHIN 1000 MG IV (12:19)
[2024-12-07] MEDS: OMNIPAQUE 50 ML PO (13:40)
--- NOTE | 2024-12-07 14:17 | PTCARENOTE ---
Pt finished oral prep for CT
--- NOTE | 2024-12-07 15:33 | CON.GS ---
Consultation
-
Date/Time Consultation Performed: 12/07/24 1330
Medical History
-
Chief Complaint: Distention
History of Present Illness:
Mr Romo is a 68 yo male with a h/o CVA with right hemiparesis and aphasia, MONIKA, BPH, UTI's and C-diff who presented with cough x5 days and worsening mental status via the ED yesterday. He reports that he has been nauseated for about a week but it
worsened over the last day or so with some vomiting yesterday although none today. He also reports diarrhea over the past 2 week or so as well although none recently. He was recently treated for a UTI with a course of cephalosporins x3 days
recently. He is unable to describe if his voiding function has changed but has been using a external catheter while in house intermittently. He does not believe he has passed flatus today or had a BM.
Past Medical History
Past Medical History: CVA (x3 with residual global aphasia and right hemiparesis), HTN, Hypercholesterolemia and Other (BPH with UTI's)
Past Surgical History: None
Social History
Tobacco: Former Smoker
Alcohol: Former
Personal:
Living: With Family
Family History
Family History: Reviewed & Not Pertinent
Allergies / Home Medications
Allergy/AdvReac Type Severity Reaction Status Date / Time
No Known Allergies Allergy Unverified 04/14/24 10:38
�Medication �Instructions �Recorded �Confirmed �Type
atorvastatin 40 mg tablet 40 mg PO DAILY High Cholesterol 04/18/23 12/06/24 History
cholecalciferol (vitamin D3) 50 50 mcg PO DAILY Supplement 04/18/23 12/06/24 History
mcg (2,000 unit) tablet
escitalopram oxalate 10 mg tablet 10 mg PO DAILY Depression 04/18/23 04/14/24 History
metoprolol succinate 25 mg 25 mg PO DAILY Blood Pressure 04/18/23 12/06/24 History
tablet,extended release 24 hr
tamsulosin 0.4 mg capsule 0.8 mg (2 x 0.4 mg) PO DAILY 04/26/23 12/06/24 Rx
Urinary issue #60 caps
beclomethasone dipropionate 40 1 inh inhalation R BIDPRN PRN sob 04/14/24 12/06/24 Rx
mcg/actuation HFA breath activated
aerosol (Qvar RediHaler)
albuterol sulfate 1.25 mg/3 mL 1.25 mg inhalation Q6H 12/06/24 12/06/24 History
solution for nebulization
Review of Systems
-
History Source: Patient and Coordinating Provider
All other systems: Negative unless noted
A 10 point review of systems was completed, and was negative except as per HPI.
Physical Exam
Vital Signs
Temp Pulse Resp BP Pulse Ox
98.7 F 87 16 148/96 91
12/07/24 11:48 12/07/24 15:24 12/07/24 15:24 12/07/24 11:48 12/07/24 15:24
12/06/24 12/07/24 12/08/24
06:59 06:59 06:59
Actual Weight 117.736 kg
Body Mass Index (BMI) 33.3
Lab Results
12/07/24 07:27
12/07/24 07:27
WBC 8.5 10^3/uL (4.8-10.8) 12/07/24 07:27
Hgb 14.2 g/dL (13.0-18.0) 12/07/24 07:27
Hct 43.6 % (39.0-52.0) 12/07/24 07:27
Plt Count 170 10^3/uL (130-400) 12/07/24 07:27
Abs Immat Gran (auto) 0.0 10^3/uL (0-0.05) 12/07/24 07:27
Neutrophils % 79.0 % (42.2-75.2) H 12/07/24 07:27
Physical Exam
General: Well Developed and Well Nourished
HEENT: Moist Mucous Membranes
Respiratory: Non Labored Respirations
GI: Soft, Non Tender and Distended
Skin: Warm and Dry
Neuro: Awake, Alert and AO x 3
Psych: Calm
Data Reviewed
-
Radiology: Image Personally Visualized and interpreted, Report Reviewed by me, Discussed with Physician and Discussed with Patient
Labs: Labs Reviewed by me, Discussed with Physician and Discussed with Patient
Old Records: Reviewed
Assessment / Plan
-
68 yo male h/o CVA with right hemiparesis and aphasia, MONIKA, BPH, UTI's and C-diff who presented with cough x5 days and worsening mental status via the ED yesterday. s/p recent tx of UTI with current urine cx growing +pseudomonas (sensitivity
pending), currently on abx with doxy and Rocephin for pna. AFVSS. No leukocytosis. GILMAR present on admission but improved today with Cr of 1.3. Seen in evaluation today for abdominal distention with nausea. XR this am with concern for ileus, likely
secondary to acute infection. Nontender on exam.
Plan:
Check CT abd/pelvis with IV/Po contrast further evaluate
Consider broadening ABX for pseudomonas coverage
NPO given continued nausea
IVF as per primary team
C/W antiemetics prn
Lovenox 40mg for vte ppx
[2024-12-07] MEDS: LOVENOX 40 MG SC (17:20)
[2024-12-07] MEDS: FLEET PHOSPHATE ENEMA-ADULT 135 ML RECTAL (20:48)
[2024-12-08] MEDS: 0.45%NACL 1000 IV ×2 (00:32→13:45)
[2024-12-08 03:05] VITALS: BP 164/89
[2024-12-08] MEDS: DUONEB 3 ML INH ×3 (07:33→14:57)
[2024-12-08 07:44] VITALS: BP 168/103
[2024-12-08] MEDS: LEXAPRO 10 MG PO (08:55)
[2024-12-08] MEDS: FLOMAX 0.8 MG PO (08:55)
[2024-12-08] MEDS: LIPITOR 40 MG PO (08:55)
[2024-12-08] MEDS: TOPROL XL 25 MG PO (08:55)
[2024-12-08] MEDS: VIBRAMYCIN 100 MG PO ×2 (08:55→19:50)
[2024-12-08] MEDS: VITAMIN D3 (cholecalciferol) 50 MCG PO (08:55)
--- NOTE | 2024-12-08 08:59 | W.PN.CRS1 ---
Today's Communication / Plan
-
enema x 1
remain npo
Assessment/Plan
-
Comment:
68-year-old male with PMH of HTN, HLD, CVA (aphasia), neurogenic bladder, paroxysmal A-fib (not on AC), recent UTI who presents with 5 days of cough and altered mental status. A fever was documented of 102.4, but has been afebrile since. He was
admitted for likely pneumonia. However, he had worsening N/V with abdominal distention. An obstructive series was done without substantial evidence for intestinal obstruction, but moderate air in the colon was seen. He states the N/V has been
ongoing for about a week associated with loose stools for 2 weeks. No vomiting today. Urine culture done showing Pseudomonas.
AFVSS, ABD soft, moderately distended in the upper abdomen with tympany, mildly tender diffusely, no rebound or guarding
labs pending
� Stool studies and C. difficile - pending
� Enema x 1 today
� Continue n.p.o. with IV fluids
� Continue antibiotics for pneumonia; would consider broadening for Pseudomonas in the urine; will hold off on coverage for stercoral proctitis (i.e.�anaerobes)
� Continue DVT PPx with Lovenox
� Appreciate hospitalist
Subjective Data
Subjective Data
Date of Service: December 08, 2024
Patient states he had a small bowel movement yesterday prior to the enema. He feels a little bloated. He is unsure if he has flatus.
Objective Data
-
Vital Signs
Temp Pulse Resp BP Pulse Ox
98.4 F 90 20 168/103 92
12/08/24 07:44 12/08/24 07:44 12/08/24 07:44 12/08/24 07:44 12/08/24 07:44
Intake & Output
12/07/24 12/08/24 12/09/24
06:59 06:59 06:59
Intake Total 720 / 720 1200 / 1200
Balance 720 / 720 1200 / 1200
Intake:
Oral fluids 720 / 720 240 / 240
IV fluids (Total) 960 / 960
IV piggybacks 0 / 0
Other:
Number of approximated SMALL 1
amounts of urine
How many times incontinent 1
MODERATE amount urine
How many times incontinent 4
SATURATED amount urine
Lab Results
12/07/24 07:27
Physical Exam
-
General: No Acute Distress and AOx3
Abdomen: Distended
Skin: Warm and Dry
--- NOTE | 2024-12-08 09:05 | W.PN.HOSP.TC ---
Today's Communication/Plan
-
Continue antibiotics
Bowel regimen
PT/OT
Assessment / Plan
Assessment / Plan
Gen-awake, alert, NAD
HEENT-NC, AT, anicteric, clear oral mm
Neck-supple
CV-reg, no M, +S1/S2
Lungs-clear bilaterally
Abd-soft, NT, distended
Ext-no edema
Musculoskeletal-no cyanosis, clubbing
Skin-warm and dry
Neuro-grossly non-focal
Psych-calm, cooperative
Sepsis -differential diagnosis of pneumonia versus UTI. I do not believe that he would have both. He denies any urinary symptoms. He did have a cough prior to admission and I suspect pneumonia is the correct diagnosis.
Admission chest x-ray with bibasilar airspace consolidation representing either pneumonia versus atelectasis.
Consolidate antibiotics for community-acquired pneumonia, ceftriaxone and doxycycline. Day 3 of antibiotics.
Blood cultures negative. COVID-negative, influenza negative.
Urinalysis shows pyuria which could represent asymptomatic bacteriuria especially given his history of neurogenic bladder. Therefore, urinalysis in this patient may not be a reliable marker of infection especially if he has no symptoms of a UTI.
Urine culture shows Pseudomonas bacteria that I suspect is colonization. Similar to prior urine culture March 2024.
Lactic acidosis present on admission, resolved.
Continue inhalers, received a dose of dexamethasone on 12/07. No wheezing today.
Nausea/vomiting -possibly due to transient ileus. No obstruction noted on CT abdomen. Fecal impaction noted, no bowel movement yesterday with enema, awaiting another enema this morning. Continue bowel regimen.
Hyponatremia -pending labs.
History of stroke x 3 -with residual right hemiparesis, global aphasia.
Essential hypertension -presentation with hypertensive urgency, resolved.
Hyperlipidemia -atorvastatin.
BPH
Depression
Possible vascular dementia
Obesity due to excess calories
DNR
Dispo -eventual SNF when medically stable.
Anticipated Discharge: > 48 hours
Subjective/Interval History
-
Date of Service: December 08, 2024
Patient seen and examined. No complaints. Denies nausea. Denies abdominal pain. No urinary symptoms.
Objective Data
-
Labs:
Laboratory Results
12/08/24
06:00
Sodium Pending
Potassium Pending
Chloride Pending
Carbon Dioxide Pending
BUN Pending
Creatinine Pending
Glucose Pending
Calcium Pending
Total Bilirubin Pending
AST Pending
ALT Pending
Alkaline Phosphatase Pending
Vital Signs:
Vital Signs
Temp Pulse Resp BP Pulse Ox
98.4 F 90 20 168/103 92
12/08/24 07:44 12/08/24 07:44 12/08/24 07:44 12/08/24 07:44 12/08/24 07:44
I&O
12/07/24 12/08/24 12/09/24
06:59 06:59 06:59
Intake Total 720 / 720 1200 / 1200
Balance 720 / 720 1200 / 1200
Review of Systems
-
History Source: Patient
All other systems: Reviewed and negative
[2024-12-08] MEDS: FLEET PHOSPHATE ENEMA-ADULT 135 ML RECTAL (10:43)
[2024-12-08] MEDS: MIRALAX 17 GRAMS PO (10:43)
[2024-12-08 11:08] LABS: ALT (SGPT) 11 U/L (0-50); AST (SGOT) 19 U/L (17-59); Albumin 3.3 g/dl (3.5-5.0); Alkaline Phosphatase 92 U/L (38-126); Blood Urea Nitrogen 17 mg/dl (9-20); Calcium 8.9 mg/dl (8.4-10.2); Carbon Dioxide 24 mmol/L (22-30); Chloride 103 mmol/L (98-107); Estimated Creatinine Clearance 80 ml/min; Glucose 116 mg/dl (70-99); Potassium 4.4 mmol/L (3.5-5.1); Sodium 132 mmol/L (135-145); Total Protein 5.9 g/dl (6.3-8.2); eGFR > 60.00
[2024-12-08 11:39] VITALS: BP 166/85
[2024-12-08] MEDS: STERILE WATER FOR INJECTION 10 ML IV (12:19)
[2024-12-08] MEDS: ROCEPHIN 1000 MG IV (12:22)
[2024-12-08 15:54] VITALS: BP 156/96
--- NOTE | 2024-12-08 16:39 | CM ---
Per PT, Rec is SNF. Will meet with patient and family to discuss choices.
Plan: Case management will continue to follow and assist with discharge planning. SNF when stable.
[2024-12-08] MEDS: LOVENOX 40 MG SC (17:44)
[2024-12-08 19:21] VITALS: BP 145/82
[2024-12-08] MEDS: DUONEB INH (19:22)
[2024-12-08 23:38] VITALS: BP 151/95
[2024-12-09 07:05] VITALS: BP 154/94
[2024-12-09] MEDS: DUONEB 3 ML INH ×4 (07:34→19:27)
[2024-12-09 08:27] LABS: ALT (SGPT) 13 U/L (0-50); AST (SGOT) 24 U/L (17-59); Albumin 3.3 g/dl (3.5-5.0); Alkaline Phosphatase 89 U/L (38-126); Blood Urea Nitrogen 17 mg/dl (9-20); Calcium 8.9 mg/dl (8.4-10.2); Carbon Dioxide 27 mmol/L (22-30); Chloride 101 mmol/L (98-107); Estimated Creatinine Clearance 74 ml/min; Glucose 89 mg/dl (70-99); Potassium 4.0 mmol/L (3.5-5.1); Sodium 134 mmol/L (135-145); Total Protein 5.8 g/dl (6.3-8.2); eGFR 59.84
[2024-12-09] MEDS: FLOMAX 0.8 MG PO (09:11)
[2024-12-09] MEDS: VITAMIN D3 (cholecalciferol) 50 MCG PO (09:12)
[2024-12-09] MEDS: TOPROL XL 25 MG PO (09:12)
[2024-12-09] MEDS: LIPITOR 40 MG PO (09:12)
[2024-12-09] MEDS: VIBRAMYCIN 100 MG PO ×2 (09:12→20:11)
[2024-12-09] MEDS: LEXAPRO 10 MG PO (09:12)
[2024-12-09] MEDS: MIRALAX PO (09:13)
--- NOTE | 2024-12-09 09:41 | W.PN.CRS1 ---
Today's Communication / Plan
-
fulls
advance diet as tolerated
no plans for surgery, will s/o
Assessment/Plan
-
Comment:
68-year-old male with PMH of HTN, HLD, CVA (aphasia), neurogenic bladder, paroxysmal A-fib (not on AC), recent UTI who presents with 5 days of cough and altered mental status. A fever was documented of 102.4, but has been afebrile since. He was
admitted for likely pneumonia. However, he had worsening N/V with abdominal distention. An obstructive series was done without substantial evidence for intestinal obstruction, but moderate air in the colon was seen. He states the N/V has been
ongoing for about a week associated with loose stools for 2 weeks. No vomiting today. Urine culture done showing Pseudomonas.
AFVSS, ABD soft, moderately distended in the upper abdomen with tympany, mildly tender diffusely, no rebound or guarding
labs pending
� Stool studies pending. C.diff negative.
� Enema x 1 today
� Advance to full liquids. Advance diet as tolerated.
� Continue antibiotics for pneumonia; would consider broadening for Pseudomonas in the urine; will hold off on coverage for stercoral proctitis (i.e.�anaerobes)
� Continue DVT PPx with Lovenox
� Appreciate hospitalist
- Will sign off. Please contact us if further surgical issues arise.
Subjective Data
Subjective Data
Date of Service: December 09, 2024
Patient states he had a large bowel movement yesterday. He denies nausea or vomiting. He has been tolerating clears. Denies pain.
Objective Data
-
Vital Signs
Temp Pulse Resp BP Pulse Ox
98.3 F 60 20 154/94 99
12/09/24 07:05 12/09/24 09:12 12/09/24 07:05 12/09/24 09:12 12/09/24 07:05
Intake & Output
12/08/24 12/09/24 12/10/24
06:59 06:59 06:59
Intake Total 1200 / 1200 1140 / 1140
Balance 1200 / 1200 1140 / 1140
Intake:
Oral fluids 240 / 240 240 / 240
IV fluids (Total) 960 / 960 900 / 900
IV piggybacks 0 / 0
Other:
Number of approximated SMALL 1
amounts of urine
How many times incontinent 4 4
SATURATED amount urine
Lab Results
12/07/24 07:27
12/09/24 06:46
Physical Exam
-
General: No Acute Distress
Abdomen: Soft, Non Distended and Non Tender
Skin: Warm and Dry
--- NOTE | 2024-12-09 11:02 | W.PN.HOSP.TC ---
Today's Communication/Plan
-
Full liquid diet
Continue antibiotics
Mucinex
Acapella
Incentive spirometer
PT/OT
Assessment / Plan
Assessment / Plan
Gen-awake, alert, NAD
HEENT-NC, AT, anicteric, clear oral mm
Neck-supple
CV-reg, no M, +S1/S2
Lungs-mild bilateral rhonchi
Abd-soft, NT, distended
Ext-no edema
Musculoskeletal-no cyanosis, clubbing
Skin-warm and dry
Neuro-grossly non-focal
Psych-calm, cooperative
Sepsis due to community-acquired pneumonia -improving. Day 4 of antibiotics. Sepsis resolved. Blood cultures negative.
Rhonchorous cough. Add Mucinex, Acapella, incentive spirometer.
No clinical evidence of UTI. Suspect asymptomatic bacteriuria, urine culture noted.
Nausea/vomiting -possibly due to transient colonic ileus. No obstruction noted on CT abdomen. Fecal impaction noted.
Clinically improving now with multiple bowel movements after enemas.
Diet to be advanced to full liquids today as per colorectal surgery.
Hyponatremia -stable, 134.
History of stroke x 3 -with residual right hemiparesis, global aphasia.
Essential hypertension -presentation with hypertensive urgency, resolved.
Hyperlipidemia -atorvastatin.
BPH
Depression
Possible vascular dementia
Obesity due to excess calories
DNR
Dispo -eventual SNF when medically stable.
Updated on the phone. All questions answered.
Anticipated Discharge: 24 - 48 hours
Subjective/Interval History
-
Date of Service: December 09, 2024
Patient seen and examined, feeling better. Bowels are moving. Does have a cough.
Objective Data
-
Labs:
Laboratory Results
12/09/24
06:46
Sodium 134 L
Potassium 4.0
Chloride 101
Carbon Dioxide 27
BUN 17
Creatinine 1.3
Glucose 89
Calcium 8.9
Total Bilirubin 0.9
AST 24
ALT 13
Alkaline Phosphatase 89
Vital Signs:
Vital Signs
Temp Pulse Resp BP Pulse Ox
98.3 F 60 20 154/94 99
12/09/24 07:05 12/09/24 09:12 12/09/24 07:05 12/09/24 09:12 12/09/24 07:05
I&O
12/08/24 12/09/24 12/10/24
06:59 06:59 06:59
Intake Total 1200 / 1200 1140 / 1140
Balance 1200 / 1200 1140 / 1140
Review of Systems
-
History Source: Patient
All other systems: Reviewed and negative
[2024-12-09] MEDS: MUCINEX 600 MG PO ×2 (11:17→20:11)
[2024-12-09] MEDS: STERILE WATER FOR INJECTION 10 ML IV (11:18)
[2024-12-09] MEDS: ROCEPHIN 1000 MG IV (11:18)
[2024-12-09 11:30] VITALS: BP 177/104; PULSE 76; O2SAT 92
[2024-12-09 12:02] VITALS: BP 177/104; PULSE 76; O2SAT 92
[2024-12-09 15:08] VITALS: BP 172/104
[2024-12-09] MEDS: LOVENOX 40 MG SC (17:05)
[2024-12-09 23:54] VITALS: BP 150/89
--- NOTE | 2024-12-10 02:54 | DOWNTIME ---
There was a [employer] [facility] Practitioner Downtime on 12/10/2024 from 0100 to 12/10/2024 at 0235. Downtime documentation of patient's care, including medication administrations, has been reconciled in the electronic record per guidelines. Refer to the
patient's paper chart under the miscellaneous tab to see printed paper medication records and downtime forms.
[2024-12-10] MEDS: DUONEB 3 ML INH ×4 (07:48→19:48)
[2024-12-10 07:50] VITALS: BP 194/106
[2024-12-10] MEDS: MUCINEX 600 MG PO ×2 (08:39→19:41)
[2024-12-10] MEDS: VIBRAMYCIN 100 MG PO ×2 (08:39→19:41)
[2024-12-10] MEDS: VITAMIN D3 (cholecalciferol) 50 MCG PO (08:39)
[2024-12-10] MEDS: LIPITOR 40 MG PO (08:40)
[2024-12-10] MEDS: TOPROL XL 25 MG PO (08:40)
[2024-12-10] MEDS: LEXAPRO 10 MG PO (08:40)
[2024-12-10] MEDS: FLOMAX 0.8 MG PO (08:44)
[2024-12-10] MEDS: MIRALAX PO (08:44)
--- NOTE | 2024-12-10 10:08 | W.PN.HOSP.TC ---
Today's Communication/Plan
-
IV Protonix
Continue antiemetics
Check labs
Assessment / Plan
Assessment / Plan
Gen-awake, alert, NAD
HEENT-NC, AT, anicteric, clear oral mm
Neck-supple
CV-reg, no M, +S1/S2
Lungs-mild bilateral rhonchi
Abd-soft, NT, distended
Ext-no edema
Musculoskeletal-no cyanosis, clubbing
Skin-warm and dry
Neuro-grossly non-focal
Psych-calm, cooperative
Sepsis due to community-acquired pneumonia -improving. Day 5 of antibiotics. Sepsis resolved. Blood cultures negative.
Rhonchorous cough. Continue Mucinex, Acapella, incentive spirometer.
No clinical evidence of UTI. Suspect asymptomatic bacteriuria, urine culture noted.
Nausea/vomiting -still having symptoms of nausea despite bowels moving.
Unclear if nausea is due to cough productive phlegm and subsequent swallowing of the phlegm, patient states he cannot expectorate.
Continue Mucinex.
Continue antiemetics.
Add Protonix.
Continue full liquid diet for now, patient does not have an appetite and is complaining of nausea.
If no improvement despite all measures then will need GI consult.
Hyponatremia -stable, 134.
History of stroke x 3 -with residual right hemiparesis, global aphasia.
Essential hypertension -presentation with hypertensive urgency, resolved.
Hyperlipidemia -atorvastatin.
BPH
Depression
Possible vascular dementia
Obesity due to excess calories
DNR
Dispo -eventual SNF when medically stable.
Updated on the phone 12/09. All questions answered.
Anticipated Discharge: 24 - 48 hours
Subjective/Interval History
-
Date of Service: December 10, 2024
Patient seen and examined, complaining of nausea. Complaining of cough.
Objective Data
-
Labs:
Laboratory Results
12/10/24
10:04
WBC Pending
Hgb Pending
Hct Pending
Plt Count Pending
Sodium Pending
Potassium Pending
Chloride Pending
Carbon Dioxide Pending
BUN Pending
Creatinine Pending
Glucose Pending
Calcium Pending
Vital Signs:
Vital Signs
Temp Pulse Resp BP Pulse Ox
97.9 F 66 18 166/104 93
12/10/24 07:50 12/10/24 08:40 12/10/24 07:52 12/10/24 08:40 12/10/24 07:52
I&O
12/09/24 12/10/24 12/11/24
06:59 06:59 06:59
Intake Total 1140 / 1140 1440 / 1440
Output Total 275 / 275
Balance 1140 / 1140 1165 / 1165
Review of Systems
-
History Source: Patient
All other systems: Reviewed and negative
[2024-12-10] MEDS: PROCARDIA XL (EXTENDED RELEASE) 30 MG PO (10:11)
[2024-12-10] MEDS: NSS (PRESERVATIVE FREE) 10 ML IV ×2 (10:12→19:42)
[2024-12-10] MEDS: ZOFRAN 4 MG IV ×2 (10:12→19:41)
[2024-12-10] MEDS: PROTONIX IV 40 MG IV ×2 (10:12→19:42)
[2024-12-10 11:32] LABS: Hematocrit 40.4 % (39.0-52.0); Hemoglobin 13.5 g/dL (13.0-18.0); Mean Corp Hgb Conc. 33.4 g/dL (33.0-37.0); Mean Corpuscular Volume 87.3 fL (80.0-94.0); Nucleated Red Blood Cells % 0 % (-); Platelet Count 189 10^3/uL (130-400); Red Cell Dist. Width 13.5 % (11.5-14.5)
[2024-12-10] MEDS: ROCEPHIN 1000 MG IV (11:34)
[2024-12-10] MEDS: STERILE WATER FOR INJECTION 10 ML IV (12:00)
[2024-12-10 12:14] LABS: Blood Urea Nitrogen 16 mg/dl (9-20); Calcium 9.1 mg/dl (8.4-10.2); Carbon Dioxide 26 mmol/L (22-30); Chloride 101 mmol/L (98-107); Estimated Creatinine Clearance 88 ml/min; Glucose 94 mg/dl (70-99); Potassium 3.7 mmol/L (3.5-5.1); Sodium 133 mmol/L (135-145); eGFR > 60.00
[2024-12-10 15:24] VITALS: BP 120/79
[2024-12-10] MEDS: LOVENOX 40 MG SC (17:47)
[2024-12-11] VITALS: BP 126/83
[2024-12-11 07:40] VITALS: BP 158/80
[2024-12-11] MEDS: DUONEB 3 ML INH ×2 (07:45→11:33)
[2024-12-11] MEDS: FLOMAX 0.8 MG PO (08:12)
[2024-12-11] MEDS: PROCARDIA XL (EXTENDED RELEASE) 30 MG PO (08:12)
[2024-12-11] MEDS: MUCINEX 600 MG PO ×2 (08:13→20:32)
[2024-12-11] MEDS: NSS (PRESERVATIVE FREE) 10 ML IV ×2 (08:13→20:31)
[2024-12-11] MEDS: LIPITOR 40 MG PO (08:13)
[2024-12-11] MEDS: VITAMIN D3 (cholecalciferol) 50 MCG PO (08:13)
[2024-12-11] MEDS: VIBRAMYCIN 100 MG PO ×2 (08:13→20:32)
[2024-12-11] MEDS: LEXAPRO 10 MG PO (08:13)
[2024-12-11] MEDS: TOPROL XL PO (08:14)
[2024-12-11] MEDS: PROTONIX IV 40 MG IV ×2 (08:14→20:31)
[2024-12-11] MEDS: MIRALAX PO (08:55)
[2024-12-11] MEDS: STERILE WATER FOR INJECTION 10 ML IV (11:12)
[2024-12-11] MEDS: ROCEPHIN 1000 MG IV (11:13)
[2024-12-11] MEDS: SODIUM CHLORIDE 3% FOR INHALATION INH (11:49)
[2024-12-11 12:54] VITALS: BP 123/71; PULSE 85; O2SAT 85
--- NOTE | 2024-12-11 13:13 | W.PN.HOSP.TC ---
Today's Communication/Plan
-
Discharge planning
Assessment / Plan
Assessment / Plan
Gen-awake, alert, NAD
HEENT-NC, AT, anicteric, clear oral mm
Neck-supple
CV-reg, no M, +S1/S2
Lungs-mild bilateral rhonchi
Abd-soft, NT, distended
Ext-no edema
Musculoskeletal-no cyanosis, clubbing
Skin-warm and dry
Neuro-grossly non-focal
Psych-calm, cooperative
Acute hypoxic respiratory failure -suspect related to pneumonia as well as underlying obesity. Pulse ox mid 80 percentile on room air, improved to 95% on 3 L. Goal pulse ox is 88 to 90%. Discussed with nursing.
Sepsis due to community-acquired pneumonia -improving. Day 6 of antibiotics. Sepsis resolved. Blood cultures negative.
Rhonchorous cough. Continue Mucinex, Acapella, incentive spirometer.
No clinical evidence of UTI. Suspect asymptomatic bacteriuria, urine culture noted.
Colonic ileus -resolved. No obstruction on imaging. Moving bowels. Tolerating diet.
Nausea/vomiting -nausea resolved on Protonix. Has not required any Zofran today.
Advance diet to low residue.
Hyponatremia -stable.
History of stroke x 3 -with residual right hemiparesis, global aphasia.
Essential hypertension -presentation with hypertensive urgency, resolved.
Hyperlipidemia -atorvastatin.
BPH
Depression
Possible vascular dementia
Obesity due to excess calories
DNR
Dispo -medically stable for discharge to SNF. Updated case management. Updated on the phone. insists that patient needs SNF although patient is currently refusing. states that she cannot take care of him at home. She plans to
come in tonight to speak with patient.
Anticipated Discharge: Within 24 hours
Subjective/Interval History
-
Date of Service: December 11, 2024
Patient seen and examined. Feels much better, denies any nausea or abdominal discomfort. No complaints.
Objective Data
-
Vital Signs:
Vital Signs
Temp Pulse Resp BP Pulse Ox
98.6 F 74 16 158/80 95
12/11/24 07:40 12/11/24 11:36 12/11/24 11:36 12/11/24 08:12 12/11/24 12:58
I&O
12/10/24 12/11/24 12/12/24
06:59 06:59 06:59
Intake Total 1440 / 1440
Output Total 275 / 275
Balance 1165 / 1165
Review of Systems
-
History Source: Patient
All other systems: Reviewed and negative
[2024-12-11 13:41] VITALS: BP 123/71; PULSE 97; O2SAT 85
[2024-12-11 15:44] VITALS: BP 104/55
--- NOTE | 2024-12-11 16:21 | CM ---
Spoke with attending who stated that patient's expressed to him that she is unable to support patient at home. Spoke with patient. He was confused and did not know that he was wearing o2. Therapy indicating SNF. Will call patient's to
obtain options.
Plan: Case management will continue to follow and assist with discharge planning. Patient will need SNF.
[2024-12-11] MEDS: LOVENOX 40 MG SC (17:55)
[2024-12-11] MEDS: SODIUM CHLORIDE 3% FOR INHALATION 1 VIAL INH (19:45)
--- NOTE | 2024-12-11 23:10 | RESPNOTE ---
Called to pt bedside for pt desaturating on nocturnal oxygen test. Arrived to find the pt satting 84% on RA. Evaluated pt for proper time restrictions of desaturation before placing back on O2 of 2 LPM. Pt sat jackie to 90%.
[2024-12-11 23:23] VITALS: BP 119/69
--- NOTE | 2024-12-12 05:51 | RESPNOTE ---
prior to removing nocturnal testing it was observed that the pt had removed the nasal cannula at some point during the night after placing on O2
[2024-12-12] MEDS: SODIUM CHLORIDE 3% FOR INHALATION 1 VIAL INH ×2 (07:09→18:04)
[2024-12-12] MEDS: DUONEB 3 ML INH ×2 (07:09→18:04)
[2024-12-12 07:44] VITALS: BP 128/74
[2024-12-12] MEDS: PROCARDIA XL (EXTENDED RELEASE) 30 MG PO (08:07)
[2024-12-12] MEDS: MIRALAX 17 GRAMS PO (08:07)
[2024-12-12] MEDS: VIBRAMYCIN 100 MG PO ×2 (08:07→20:41)
[2024-12-12] MEDS: FLOMAX 0.8 MG PO (08:07)
[2024-12-12] MEDS: MUCINEX 600 MG PO ×2 (08:07→20:41)
[2024-12-12] MEDS: TOPROL XL 25 MG PO (08:08)
[2024-12-12] MEDS: LIPITOR 40 MG PO (08:08)
[2024-12-12] MEDS: NSS (PRESERVATIVE FREE) 10 ML IV (08:08)
[2024-12-12] MEDS: PROTONIX IV 40 MG IV (08:08)
[2024-12-12] MEDS: VITAMIN D3 (cholecalciferol) 50 MCG PO (08:08)
[2024-12-12] MEDS: LEXAPRO 10 MG PO (08:08)
[2024-12-12 09:23] VITALS: BMI 33.3
[2024-12-12 09:56] VITALS: BP 128/81; PULSE 63; O2SAT 93
--- NOTE | 2024-12-12 11:50 | W.PN.HOSP.TC ---
Today's Communication/Plan
-
Discharge planning
Assessment / Plan
Assessment / Plan
Gen-awake, alert, NAD
HEENT-NC, AT, anicteric, clear oral mm
Neck-supple
CV-reg, no M, +S1/S2
Lungs-mild bilateral rhonchi
Abd-soft, NT, distended
Ext-no edema
Musculoskeletal-no cyanosis, clubbing
Skin-warm and dry
Neuro-grossly non-focal
Psych-calm, cooperative
Acute hypoxic respiratory failure -suspect related to pneumonia as well as underlying obesity. Pulse ox mid 80 percentile on room air, improved to 95% on 3 L. Goal pulse ox is 88 to 90%. Discussed with nursing.
Sepsis due to community-acquired pneumonia -improving. Last day of antibiotics. Sepsis resolved. Blood cultures negative.
Rhonchorous cough. Continue Mucinex, Acapella, incentive spirometer.
No clinical evidence of UTI. Suspect asymptomatic bacteriuria, urine culture noted.
Colonic ileus -resolved. No obstruction on imaging. Moving bowels. Tolerating diet.
Nausea/vomiting -nausea resolved on Protonix.
Tolerating low residue diet.
Hyponatremia -stable.
History of stroke x 3 -with residual right hemiparesis, global aphasia.
Essential hypertension -presentation with hypertensive urgency, resolved.
Hyperlipidemia -atorvastatin.
BPH
Depression
Possible vascular dementia
Obesity due to excess calories
DNR
Dispo -medically stable for discharge to SNF. Updated case management. Updated on the phone. insists that patient needs SNF although patient is currently refusing. states that she cannot take care of him at home, she prefers SNF.
Anticipated Discharge: Within 24 hours
Subjective/Interval History
-
Date of Service: December 12, 2024
Patient seen and examined. No complaints.
Objective Data
-
Vital Signs:
Vital Signs
Temp Pulse Resp BP Pulse Ox
98.2 F 72 18 128/74 98
12/12/24 07:44 12/12/24 08:07 12/12/24 07:44 12/12/24 08:07 12/12/24 07:44
I&O
12/11/24 12/12/24 12/13/24
06:59 06:59 06:59
Intake Total 360 / 360
Balance 360 / 360
Review of Systems
-
History Source: Patient
All other systems: Reviewed and negative
[2024-12-12 15:15] VITALS: BP 117/71
[2024-12-12] MEDS: LOVENOX 40 MG SC (17:15)
--- NOTE | 2024-12-12 17:51 | CM ---
Spoke with patient's , Rae who stated that she would like to try and take patient home. She is hoping that PT or medical staff can demonstrate his ability/deficits before he returns home so she can confirm that she can support him.
Spoke with Sarah Shen from [facility] who stated that she will be available all weekend. Faxed all paperwork to her in anticipation of him going home and needing o2. Sarah [phone] [phone].
Plan: Case management will continue to follow and assist with discharge planning. SNF vrs home with o2 (with ).
[2024-12-12] MEDS: PROTONIX 40 MG PO (20:41)
[2024-12-12 23:31] VITALS: BP 127/76
[2024-12-13 07:00] VITALS: BP 166/88
[2024-12-13] MEDS: DUONEB 3 ML INH (07:15)
[2024-12-13] MEDS: SODIUM CHLORIDE 3% FOR INHALATION 1 VIAL INH (07:16)
[2024-12-13] MEDS: PROCARDIA XL (EXTENDED RELEASE) 30 MG PO (09:09)
[2024-12-13] MEDS: FLOMAX 0.8 MG PO (09:09)
[2024-12-13] MEDS: TOPROL XL 25 MG PO (09:09)
[2024-12-13] MEDS: PROTONIX 40 MG PO (09:09)
[2024-12-13] MEDS: LIPITOR 40 MG PO (09:10)
[2024-12-13] MEDS: VITAMIN D3 (cholecalciferol) 50 MCG PO (09:10)
[2024-12-13] MEDS: MUCINEX 600 MG PO (09:10)
[2024-12-13] MEDS: LEXAPRO 10 MG PO (09:10)
[2024-12-13] MEDS: MIRALAX PO (09:11)
--- NOTE | 2024-12-13 10:54 | W.PN.HOSP.TC ---
Today's Communication/Plan
-
Discharge planning
Assessment / Plan
Assessment / Plan
Gen-awake, alert, NAD
HEENT-NC, AT, anicteric, clear oral mm
Neck-supple
CV-reg, no M, +S1/S2
Lungs-mild bilateral rhonchi
Abd-soft, NT, distended
Ext-no edema
Musculoskeletal-no cyanosis, clubbing
Skin-warm and dry
Neuro-grossly non-focal
Psych-calm, cooperative
Acute hypoxic respiratory failure -suspect related to pneumonia as well as underlying obesity. Pulse ox mid 80 percentile on room air, improved to 95% on 3 L. Goal pulse ox is 88 to 90%. Discussed with nursing.
Nursing reports patient is refusing to wear oxygen. I spoke to patient about it and he has very little insight. He cannot tell me the risks versus benefits of using versus not using oxygen. He simply states that he does not need it. He does not
understand the ramifications of hypoxia.
Sepsis due to community-acquired pneumonia -improving. Completed course of antibiotics. Sepsis resolved. Blood cultures negative.
Rhonchorous cough. Continue Mucinex, Acapella, incentive spirometer.
No clinical evidence of UTI. Suspect asymptomatic bacteriuria, urine culture noted.
Colonic ileus -resolved. No obstruction on imaging. Moving bowels. Tolerating diet.
Nausea/vomiting -nausea resolved on Protonix.
Tolerating low residue diet.
Hyponatremia -stable.
History of stroke x 3 -with residual right hemiparesis, global aphasia.
Essential hypertension -presentation with hypertensive urgency, resolved.
Hyperlipidemia -atorvastatin.
BPH
Depression
Possible vascular dementia
Obesity due to excess calories
DNR
Dispo -medically stable for discharge. SNF versus home with PT. I spoke with on the phone today and she wants to make sure he is safe to come home otherwise she prefers SNF. Discussed with nurse and case management. to come in today
and work with PT.
Anticipated Discharge: Within 24 hours
Subjective/Interval History
-
Date of Service: December 13, 2024
Patient seen and examined. No complaints.
Objective Data
-
Vital Signs:
Vital Signs
Temp Pulse Resp BP Pulse Ox
98.4 F 78 16 166/88 92
12/13/24 07:00 12/13/24 07:18 12/13/24 07:18 12/13/24 07:00 12/13/24 08:55
I&O
12/12/24 12/13/24 12/14/24
06:59 06:59 06:59
Intake Total 360 / 360 480 / 480
Balance 360 / 360 480 / 480
Review of Systems
-
History Source: Patient
All other systems: Reviewed and negative
[2024-12-13 15:00] VITALS: BP 136/73; BP 149/79; BP 161/93; PULSE 96
--- NOTE | 2024-12-13 15:52 | W.DS.TRANS ---
DC Summary - Electrodynamicist
-
Discharge Instructions:
Discharge Diagnosis/Procedures Sepsis, community-acquired pneumonia
Diet Low Cholesterol,Low Fat
Activity As tolerated,With assistance
Driving Restrictions No driving
Bathing Restrictions None
Other Services VN
Instructions:
Stand-Alone Forms:
Changes to Home Medications: No
Discharge Medications:
DC Medications w/original date entered in [employer]
atorvastatin 40 mg tablet 40 mg PO DAILY High Cholesterol 04/18/23
cholecalciferol (vitamin D3) 50 mcg (2,000 unit) tablet 50 mcg PO DAILY Supplement 04/18/23
escitalopram oxalate 10 mg tablet 10 mg PO DAILY Depression 04/18/23
metoprolol succinate 25 mg tablet,extended release 24 hr 25 mg PO DAILY Blood Pressure 04/18/23
tamsulosin 0.4 mg capsule 0.8 mg (2 x 0.4 mg) PO DAILY Urinary issue #60 caps 04/26/23
beclomethasone dipropionate 40 mcg/actuation HFA breath activated aerosol (Qvar RediHaler) 1 inh inhalation R BIDPRN PRN sob 04/14/24
albuterol sulfate 1.25 mg/3 mL solution for nebulization 1.25 mg inhalation Q6H 12/06/24
nifedipine 30 mg tablet,extended release 30 mg PO DAILY #30 tabs 12/13/24
pantoprazole 40 mg tablet,delayed release 40 mg PO BID #60 tabs 12/13/24
Home Medication Changes
Pending Results: No
--- NOTE | 2024-12-13 16:55 | CM ---
Patient has been medically cleared for discharge to home with [facility], PT/OT services. Patient also requires nocturnal O2. [employer] is supplying the O2 concentrator and tanks. Will be delivered this evening. will transport home.
observed patient during therapy session and feels he is at baseline and willing to care for him at home.
== END 2024-12-13 18:36 | disposition home health service (06) | DRG 871 ==
LOC: 4 EAST ACU 02:21
PROVIDERS: ADMITTING PHYSICIAN Internal Medicine; ATTENDING PHYSICIAN Hospitalist; CONSULT PHYSICIAN Surgery; EMERGENCY PHYSICIAN Emergency Medicine; FAMILY PHYSICIAN Internal Medicine
DX: A41.9 Sepsis, unspecified organism (principal); J18.9 Pneumonia, unspecified organism; J96.01 Acute respiratory failure with hypoxia; K56.7 Ileus, unspecified; E87.1 Hypo-osmolality and hyponatremia; J98.11 Atelectasis; I69.351 Hemiplegia and hemiparesis following cerebral infarction affecting right dominant side; F01.53 Vascular dementia, unspecified severity, with mood disturbance; E87.20 Acidosis, unspecified; Z11.52 Encounter for screening for COVID-19; I10 Essential (primary) hypertension; N31.9 Neuromuscular dysfunction of bladder, unspecified; I69.320 Aphasia following cerebral infarction; I48.0 Paroxysmal atrial fibrillation; G47.33 Obstructive sleep apnea (adult) (pediatric); E66.01 Morbid (severe) obesity due to excess calories; Z68.33 Body mass index [BMI] 33.0-33.9, adult; Z87.440 Personal history of urinary (tract) infections; F32.A Depression, unspecified; N40.0 Benign prostatic hyperplasia without lower urinary tract symptoms; Z87.891 Personal history of nicotine dependence; Z66 Do not resuscitate; E78.00 Pure hypercholesterolemia, unspecified; K56.41 Fecal impaction; Z79.899 Other long term (current) drug therapy
CPT/HCPCS: 36600; 51701; 71046; 74022; 74177; 80048; 80053; 81003; 81015; 82805; 83605; 85025; 85027; 87040; 87045; 87046; 87070; 87077; 87086; 87186; 87324; 87427; 87449; 87502; 87811; 93005; 94640; 94762; 96361; 96365; 96375; 97116; 97163; 97167; 97530; 97535; 99285; Q9967